=== PATIENT | male | born 1985 | race Two or more races ===

== ENCOUNTER 2017-03-07 08:50 | Emergency (ER) | payer SELFPAY ==
[~2017-03-07] VITALS: Ht 175.3 cm; Wt 57.0 kg
[2017-03-07 12:29] VITALS: BP 108/50
[2017-03-07] MEDS ORDERED: IBUPROFEN 800MG TABLET PO ONE (12:30)
== END 2017-03-07 13:39 | disposition home or self-care (01) ==
LOC: ER 09:25 → EDBD 09:25 → ER 13:39
DX: M25.552 Pain in left hip (principal); M54.5 Low back pain
CPT/HCPCS: 73502; 99284